=== PATIENT | female | born 1965 | race Caucasian/White ===

== ENCOUNTER 2018-10-05 09:44 | Emergency (ER) | payer OTHER ==
[~2018-10-05] VITALS: Ht 162.6 cm; Wt 67.6 kg
[2018-10-05] MEDS ORDERED: LISINOPRIL40 MG (10:19)
[2018-10-05] MEDS ORDERED: [UNRECOGNIZED DRUG - OTHER] (10:20)
== END 2018-10-05 17:07 | disposition home or self-care (01) ==
LOC: ER 09:44
DX: K57.92 Diverticulitis of intestine, part unspecified, without perforation or abscess without bleeding (principal); R10.32 Left lower quadrant pain; K62.5 Hemorrhage of anus and rectum